=== PATIENT | female | born 1955 | race Two or more races ===

== ENCOUNTER 2022-05-29 11:09 | Emergency (ER) | payer SELFPAY ==
[2022-05-29 11:49] VITALS: BMI 33.3
[2022-05-29] MEDS ORDERED: ACETAMINOPHEN 1000 MG/100 ML BAG IVPB ONE (13:38)
[2022-05-29] MEDS ORDERED: LIDOCAINE 5% TOPICAL PATCH TP ONE (13:38)
[2022-05-29] MEDS ORDERED: LIDOCAINE 5% TOPICAL PATCH ONE (13:48)
[2022-05-29] MEDS ORDERED: ACETAMINOPHEN INJECTION 100 ML IVPB ONE (13:48)
[2022-05-29 14:29] LABS: BASO % 0.7 % (0-2.0); EOS % 0.8 % (0-4.5); HEMATOCRIT 38.2 % (32.4-45.2); HEMOGLOBIN 12.6 GM/dL (10.7-15.3); LYMPH % 32.2 % (8-40); MCH 26.6 pg (25.7-33.7); MCHC 32.9 g/dl (32.0-36.0); MEAN PLT VOLUME 8.9 fl (7.5-11.1); MONO % 6.3 % (3.8-10.2); PLATELET COUNT 288 10^3/uL (134-434); RBC 4.72 M/mm3 (3.60-5.2); RDW 14.5 % (11.6-15.6); WHITE BLOOD COUNT 11.7 K/mm3 (4.0-10.0)
[2022-05-29 15:35] LABS: BLOOD UREA NITROGEN 12.1 mg/dL (7-18)
[2022-05-29 15:38] LABS: CREATININE 0.7 mg/dL (0.55-1.3)
[2022-05-29 15:40] LABS: BILIRUBIN,TOTAL 0.5 mg/dL (0.2-1); TOT PROT 7.9 g/dl (6.4-8.2)
[2022-05-29 16:27] VITALS: BP 110/73; PULSE 72; RESP 16; TEMP 97.8
[2022-05-29 17:49] LABS: URINE APPEARANCE CLEAR; URINE BILIRUBIN NEGATIVE (NEGATIVE); URINE COLOR YELLOW; URINE GLUCOSE (UA) NEGATIVE (NEGATIVE); URINE KETONE NEGATIVE (NEGATIVE); URINE LEUK ESTERASE NEGATIVE (NEGATIVE); URINE NITRITE NEGATIVE (NEGATIVE); URINE PROTEIN NEGATIVE (NEGATIVE); URINE UROBILINOGEN 0.2 mg/dL (0.2-1.0)
[2022-05-29] MEDS ORDERED: LIDOCAINE PATCH REMOVAL MC ONE (22:00)
== END 2022-05-29 18:15 | disposition home or self-care (01) ==
LOC: JER 11:09
PROC: 3E0333Z Introduction of Anti-inflammatory into Peripheral Vein, Percutaneous Approach (ICD-10-PCS; principal; 2022-05-29)
DX: M51.36 Other intervertebral disc degeneration, lumbar region (principal); M54.50 Low back pain, unspecified
CPT/HCPCS: 36415; 72131-TC; 72170-TC-FY; 72192-TC; 73502-TC-LT-FY; 80053; 81003; 85025; 87077; 87086; 99285-25